=== PATIENT | male | born 1995 | race Caucasian/White ===

== ENCOUNTER 2018-10-13 19:14 | Emergency (ER) | payer BC ==
[~2018-10-13 19:14] MED LIST: ISOVUE-370 76%-LOCM 1 ML ONE
--- NOTE | 2018-10-13 20:55 | CT ---
CT head noncontrast HISTORY: Headache. FINDINGS: There is no evidence of acute intracranial hemorrhage or infarct. The ventricles appear nor mal in size, shape and position. There is no mass effect or shift of midline structures. Visualized paranasal sinuses remain well-aerated. IMPRESSION: No acute intracranial abnormalities are demonstrated.
[2018-10-13] MEDS ORDERED: Ketorolac Tromethamine 60 MG/2 ML VIAL ONE (22:40)
[2018-10-13] MEDS ORDERED: diphenhydrAMINE 50 MG/ML VIAL ONE (22:41)
[2018-10-13] MEDS ORDERED: Metoclopramide HCl 10 MG/2 ML VIAL ONE (22:41)
--- NOTE | 2018-10-13 23:37 | CT ---
CT arteriogram head with IV contrast and 3-D imaging CT brain with IV contrast HISTORY: Headache. FINDINGS: There is good contrast opacification of each internal carotid and the vertebrobasilar syste m. [place] is intact. Good flow into each cerebral system. No focal aneurysm or evidence of active extravasation. No abnormal areas of contrast enhancement are apparent within the brain. IMPRESSION: No acute intracranial abnormalities are demonstrated.
== END 2018-10-14 00:15 | disposition home or self-care (01) ==
LOC: ERS 19:14
DX: R51 Headache (principal)
CPT/HCPCS: 70450; 70496; J1200; J1885; J2765; Q9966